=== PATIENT | male | born 1970 | race Two or more races ===

== ENCOUNTER 2025-03-11 19:16 | Inpatient (IN) | payer OTHER ==
[2025-03-11] VITALS: BP 123/82; TEMP 98; O2SAT 97
[~2025-03-11] VITALS: Ht 172.7 cm; Wt 94.3 kg
[2025-03-11 19:47] LABS: PLATELET COUNT (AUTO) 232 K/uL (150-450); RED BLOOD CELL COUNT(AUTO) 5.31 MIL/uL (4.5-6.0); RED CELL DISTRIBUTION WIDTH 14.3 % (11.5-15.0); WHITE BLOOD COUNT (AUTO) 9.1 K/uL (4.3-11.0)
[2025-03-11 19:53] LABS: CALCIUM, SERUM 8.7 mg/dL (8.5-10.1); CREATININE 1.7 mg/dL (0.6-1.3); SODIUM SERUM 136.0 mmol/L (136-145); UREA NITROGEN, BLOOD 25.0 mg/dL (7-18)
[2025-03-11 20:09] LABS: NT-PRO BNP 261 pg/mL (0-125)
[2025-03-11] MEDS: ONDANSETRON HCL/PF 4 MG/2 ML VIAL IV ONE (20:21)
[2025-03-11] MEDS: IV NS 0.9% 1,000 ML BAG IV ONE (20:21)
[2025-03-11] MEDS: ASPIRIN 325 MG TABLET PO ONE (20:23)
[2025-03-11] MEDS ORDERED: DEXTROSE 50%-WATER 50 ML DISP.SYRIN IV PRN (22:00)
[2025-03-11] MEDS ORDERED: NITROGLYCERIN 0.4 MG/TAB BOTTLE SL PRN (23:00)
[2025-03-11] MEDS ORDERED: CLONIDINE HCL 0.1 MG TABLET PO PRN (23:00)
[2025-03-11] MEDS ORDERED: hydrALAZINE HCL IV 20 MG VIAL IV PRN (23:00)
[2025-03-11] MEDS ORDERED: ONDANSETRON HCL/PF 4 MG/2 ML VIAL IV PRN (23:00)
[2025-03-11] MEDS ORDERED: MORPHINE SULFATE INJ 2 MG/ML DISP.SYRIN IV PRN (23:00)
[2025-03-11] MEDS ORDERED: ACETAMINOPHEN 325 MG TABLET PO PRN (23:00)
[2025-03-11] MEDS ORDERED: MORPHINE SULFATE INJ 4 MG/ML DISP.SYRIN IV PRN (23:00)
[2025-03-11] MEDS ORDERED: ENOXAPARIN SODIUM 40 MG/0.4 ML DISP.SYRIN SQ SCH (23:00)
[2025-03-11] MEDS: BLOOD SUGAR DIAGNOSTIC 1 EACH STRIP IN SCH (23:35)
[2025-03-11] MEDS: ENOXAPARIN SODIUM 40 MG/0.4 ML DISP.SYRIN SQ ONE (23:39)
[2025-03-12] VITALS: BP 123/82; TEMP 98; O2SAT 97
[2025-03-12 04:00] VITALS: BP 105/71; TEMP 97.6; O2SAT 96
[2025-03-12 07:29] LABS: CALCIUM, SERUM 8.6 mg/dL (8.5-10.1); CREATININE 1.4 mg/dL (0.6-1.3); SODIUM SERUM 139.0 mmol/L (136-145); UREA NITROGEN, BLOOD 22.0 mg/dL (7-18)
[2025-03-12 08:00] VITALS: BP 140/86; TEMP 98.1; O2SAT 98
[2025-03-12 08:01] LABS: PLATELET COUNT (AUTO) 213 K/uL (150-450); RED BLOOD CELL COUNT(AUTO) 5.02 MIL/uL (4.5-6.0); RED CELL DISTRIBUTION WIDTH 14.1 % (11.5-15.0); WHITE BLOOD COUNT (AUTO) 5.9 K/uL (4.3-11.0)
[2025-03-12] MEDS ORDERED: ASPI-1420 PO (08:18)
[2025-03-12] MEDS ORDERED: ATOR80TA PO (08:18)
[2025-03-12] MEDS ORDERED: LOSA100T3 PO (08:18)
[2025-03-12] MEDS ORDERED: FENO160T PO (08:18)
[2025-03-12] MEDS ORDERED: SEMA0.25 SQ (08:18)
[2025-03-12] MEDS: ASPIRIN 325 MG TABLET PO SCH (08:32)
[2025-03-12] MEDS: AMLODIPINE BESYLATE 5 MG TABLET PO SCH (08:32)
[2025-03-12] MEDS ORDERED: ASPIRIN EC 325 MG TABLET.DR PO SCH (09:00)
[2025-03-12 12:00] VITALS: BP 134/82; TEMP 98.2; O2SAT 96
[2025-03-12 16:00] VITALS: BP 119/83; TEMP 97.7; O2SAT 97
[2025-03-12 16:31] LABS: LDL 123.0 mg/dL (0-99)
[2025-03-12] MEDS: INSULIN REGULAR, HUMAN 100 UNIT/ML 3 ML VIAL SQ PRN (17:38)
[2025-03-12] MEDS: HEPARIN SODIUM, PORCINE 5000 UNITS/1 ML VIAL IV ONE (18:19)
[2025-03-12] MEDS: HEPARIN INFUSION/D5W 500 ML IV PRN (18:24)
[2025-03-12 20:00] VITALS: BP 122/73; TEMP 98.7; O2SAT 96
[2025-03-12] MEDS ORDERED: ENOXAPARIN SODIUM 40 MG/0.4 ML DISP.SYRIN SQ SCH (21:00)
[2025-03-12] MEDS: ATORVASTATIN 40 MG TABLET PO SCH (22:09)
[2025-03-13] VITALS: BP 112/79; TEMP 98.8; O2SAT 96
[2025-03-13 04:00] VITALS: BP 111/80; TEMP 97.7; O2SAT 96
[2025-03-13 08:00] VITALS: BP 112/81; TEMP 98.5; O2SAT 95
[2025-03-13] MEDS: LOSARTAN POTASSIUM 50 MG TABLET PO SCH (08:21)
[2025-03-13] MEDS ORDERED: Medication Not On Formulary EA (Fenofibrate 160 MG) PO SCH (09:00)
[2025-03-13 10:00] LABS: PLATELET COUNT (AUTO) 221 K/uL (150-450); RED BLOOD CELL COUNT(AUTO) 5.33 MIL/uL (4.5-6.0); RED CELL DISTRIBUTION WIDTH 14.4 % (11.5-15.0); WHITE BLOOD COUNT (AUTO) 5.6 K/uL (4.3-11.0)
[2025-03-13 10:33] LABS: CALCIUM, SERUM 9.0 mg/dL (8.5-10.1); CREATININE 1.5 mg/dL (0.6-1.3); SODIUM SERUM 139.0 mmol/L (136-145); UREA NITROGEN, BLOOD 20.0 mg/dL (7-18)
[2025-03-13 12:00] VITALS: BP 133/81; TEMP 98.6; O2SAT 96
[2025-03-13] MEDS: IV 1/2NS 1000 ML 1,000 ML IV PRN (12:19)
[2025-03-13 16:00] VITALS: BP 103/74; TEMP 97.4; O2SAT 94
[2025-03-13 20:00] VITALS: BP 110/77; TEMP 98.4; O2SAT 95
[2025-03-14 00:06] VITALS: BP 131/83; TEMP 97.9; O2SAT 94
[2025-03-14 04:00] VITALS: BP 105/74; TEMP 97.9; O2SAT 96
[2025-03-14 08:00] VITALS: BP 120/89; TEMP 97.7; O2SAT 95
[2025-03-14 08:04] LABS: INR 0.98 (0.91-1.10)
[2025-03-14 08:05] LABS: CALCIUM, SERUM 8.7 mg/dL (8.5-10.1); CREATININE 1.3 mg/dL (0.6-1.3); SODIUM SERUM 136.0 mmol/L (136-145); UREA NITROGEN, BLOOD 19.0 mg/dL (7-18)
[2025-03-14 12:00] VITALS: BP 131/81; TEMP 97.7; O2SAT 97
[2025-03-14 16:00] VITALS: BP 133/88; TEMP 98.6; O2SAT 95
[2025-03-14 20:00] VITALS: BP 117/77; TEMP 97.9; O2SAT 95
[2025-03-15] VITALS: BP 113/80; TEMP 97.5; O2SAT 98
[2025-03-15 04:00] VITALS: BP 99/73; TEMP 97.7; O2SAT 94
[2025-03-15 08:00] VITALS: BP 110/80; TEMP 97.9; O2SAT 100
[2025-03-15 08:01] LABS: PLATELET COUNT (AUTO) 244 K/uL (150-450); RED BLOOD CELL COUNT(AUTO) 5.46 MIL/uL (4.5-6.0); RED CELL DISTRIBUTION WIDTH 14.1 % (11.5-15.0); WHITE BLOOD COUNT (AUTO) 6.0 K/uL (4.3-11.0)
[2025-03-15] MEDS: LINAGLIPTIN 5 MG TABLET PO SCH (08:14)
[2025-03-15 08:20] LABS: CALCIUM, SERUM 9.4 mg/dL (8.5-10.1); CREATININE 1.4 mg/dL (0.6-1.3); SODIUM SERUM 138.0 mmol/L (136-145); UREA NITROGEN, BLOOD 20.0 mg/dL (7-18)
[2025-03-15 12:00] VITALS: BP 116/78; TEMP 97.8; O2SAT 100
[2025-03-15] MEDS ORDERED: LIDOCAINE HCL/MPF 1% 30 ML VIAL IJ ONE (12:02)
[2025-03-15] MEDS ORDERED: IV NS 0.9% 1,000 ML ONE (12:02)
[2025-03-15] MEDS ORDERED: IV SET PRIMARY PUMP SET 1 EA INFUS.SET MC ONE (12:02)
[2025-03-15] MEDS ORDERED: IODIXANOL 150 ML IV ONE (12:23)
[2025-03-15] MEDS ORDERED: NITROGLYCERIN IN 5 % DEXTROSE 250 ML IV ONE (12:40)
[2025-03-15] MEDS ORDERED: MIDAZOLAM HCL 2 MG/2ML VIAL ONE (13:08)
[2025-03-15] MEDS ORDERED: FENTANYL PF 100MCG/2ML AMPUL ONE (13:08)
[2025-03-15 16:00] VITALS: BP 113/76; TEMP 97.7; O2SAT 100
[2025-03-15 20:00] VITALS: BP 127/83; TEMP 97.9; O2SAT 100
== END 2025-03-15 21:56 | disposition short-term general hospital (02) | DRG 280 ==
LOC: ER 19:20 → TELE1 22:07
PROVIDERS: ADMIT Internal Medicine; ATTEND Internal Medicine
PROC: 4A023N7 Measurement of Cardiac Sampling and Pressure, Left Heart, Percutaneous Approach (ICD-10-PCS; principal; 2025-03-15)
PROC: B211YZZ Fluoroscopy of Multiple Coronary Arteries using Other Contrast (ICD-10-PCS; 2025-03-15)
DX: I21.4 Non-ST elevation (NSTEMI) myocardial infarction (principal); N17.0 Acute kidney failure with tubular necrosis; E11.22 Type 2 diabetes mellitus with diabetic chronic kidney disease; I12.9 Hypertensive chronic kidney disease with stage 1 through stage 4 chronic kidney disease, or unspecified chronic kidney disease; N18.9 Chronic kidney disease, unspecified; E66.9 Obesity, unspecified; E78.5 Hyperlipidemia, unspecified; I25.5 Ischemic cardiomyopathy; Z87.891 Personal history of nicotine dependence; Z68.31 Body mass index [BMI] 31.0-31.9, adult; I25.10 Atherosclerotic heart disease of native coronary artery without angina pectoris; Z82.49 Family history of ischemic heart disease and other diseases of the circulatory system
CPT/HCPCS: 36415; 71045-TC; 76770-TC; 80048-TC; 80061-TC; 82962-TC; 83880; 84443-TC; 84484-TC; 85025-TC; 85610-TC; 85730-TC; 93307-TC; A4223; G0378; J1644; J1650; J1815; J2250; J2405; J3010; J3490; J7030; Q9967